=== PATIENT | female | born 1980 | race Caucasian/White ===

== ENCOUNTER → 2020-05-10 | Outpatient (CLI) | payer BC, OTHER ==
[2020-05-10 12:20] LABS: RED BLOOD COUNT 5.1 M/UL (4.00-5.10); WHITE BLOOD COUNT 6.9 K/UL (4.5-11.0)
[2020-05-10 12:40] LABS: BUN/CREATININE RATIO 14 (0-10)
[2020-05-11 10:14] LABS: HBSAG SCREEN Negative (Negative); HCV AB <0.1 (0.0-0.9); HEP B CORE AB, TOT Negative (Negative)
== END ==
LOC: LAB 11:47
PROVIDERS: Internal Medicine
DX: D89.89 Other specified disorders involving the immune mechanism, not elsewhere classified (principal); R76.8 Other specified abnormal immunological findings in serum; M25.50 Pain in unspecified joint; Z79.899 Other long term (current) drug therapy
CPT/HCPCS: 36415; 80053; 85025; 86704; 86803; 87340